=== PATIENT | male | born 1950 | race Caucasian/White ===

== ENCOUNTER 2023-12-31 14:55 | Inpatient (IN) | payer OTHER ==
[~2023-12-31] VITALS: Wt 95.3 kg
[2023-12-31 15:14] LABS: BASO % 0.3 % (0.0-1.0); EOS # 0.2 10*3/uL (0.0-0.4); EOS % 2.5 % (1.0-4.0); HEMATOCRIT 46.8 % (42.0-52.0); LYMPH # 1.7 10*3/uL (1.3-4.4); LYMPH % 24.7 % (27.0-41.0); MEAN CELL VOLUME 95.1 fl (80.0-94.0); MEAN CORPUSCULAR HGB 30.7 pg (27.0-31.0); MEAN CORPUSCULAR HGB CONC 32.3 g/dl (33.0-37.0); MEAN PLATELET VOLUME 10.7 fl (9.6-12.3); MONO # 0.7 10*3/uL (0.1-1.0); MONO % 10.1 % (3.0-9.0); NEUT # 4.2 10*3/uL (2.3-7.9); NEUT % 61.7 % (47.0-73.0); PLATELET COUNT AUTOMATED 148 10*3/uL (130-400); RED BLOOD COUNT 4.92 10*6/uL (4.50-5.90); RED CELL DISTRI WIDTH 12.1 % (0-14.5); WHITE BLOOD COUNT 6.7 10*3/uL (4.8-10.8)
[2023-12-31 15:23] VITALS: BP 96/54
[2023-12-31 15:38] LABS: POTASSIUM 4.4 mmol/L (3.4-5.1); TOTAL PROTEIN 6.9 gm/dL (6.0-8.0)
[2023-12-31 15:38] LABS: BILIRUBIN Negative (Negative); BLOOD 2+ (Negative); CLARITY Clear (Clear); COLOR Yellow (Yellow); GLUCOSE Negative (Negative); KETONE Trace (Negative); LEUKO ESTERASE 1+ (Negative); NITRITE Negative (Negative); UROBILINOGEN 0.2 E.U./dl (0.0-1.0)
[2023-12-31 15:58] LABS: MUCOUS 1+; RBC 21-30 rbc/hpf (0-2)
[2023-12-31] MEDS ORDERED: Fosfomycin Tromethamine 3 GM PDS PO ONE (16:05)
[2023-12-31] MEDS ORDERED: ARICEPT10 M1 PO (16:44)
[2023-12-31] MEDS ORDERED: VITAMIN B-12250 MCG PO (16:45)
[2023-12-31] MEDS ORDERED: CELEXA10 MG PO (16:45)
[2023-12-31] MEDS ORDERED: FINASTERIDE5 M1 PO (16:45)
[2023-12-31] MEDS ORDERED: CLARITIN10 MG PO (16:47)
[2023-12-31] MEDS ORDERED: PROSCAR5 M1 PO (16:49)
[2023-12-31] MEDS ORDERED: FLOMAX0.4 MG PO (16:50)
[2023-12-31] MEDS ORDERED: VITAMIN D31250 MC1 PO (16:51)
[2023-12-31] MEDS ORDERED: ELIQUIS2.5 M1 PO (16:51)
[2023-12-31] MEDS ORDERED: RISPERDAL0.5 MG PO (16:52)
[2023-12-31 18:15] VITALS: BP 117/58
[2023-12-31 20:00] VITALS: BP 134/88
[2023-12-31] MEDS ORDERED: MG-AL HYDROXIDE/SIMETICONE 30 ML UDC PO PRN (20:05)
[2023-12-31] MEDS ORDERED: ACETAMINOPHEN 325 MG TAB PO PRN (20:05)
[2023-12-31] MEDS ORDERED: Magnesium Hydroxide 30 ML UDC PO PRN (20:05)
[2023-12-31] MEDS ORDERED: Menthol/Zinc Oxide 4 GM THIN T PRN (20:15)
[2023-12-31] MEDS ORDERED: DEPAKOTE SPRIN125 MG PO (21:12)
[2023-12-31] MEDS ORDERED: Nizoral 2%15 GM T (21:15)
[2023-12-31] MEDS ORDERED: MIRALAX119 GM PO (21:17)
[2023-12-31] MEDS ORDERED: SENNA8.6 MG PO (21:17)
[2023-12-31] MEDS ORDERED: Ziprasidone Mesylate 20 MG VIAL IM PRN (21:30)
[2023-12-31] MEDS ORDERED: LORazepam 1 MG TAB PO PRN (21:30)
[2023-12-31] MEDS ORDERED: Water, Sterile 10 ML VIAL IM PRN (21:35)
[2024-01-01 07:32] VITALS: BP 111/65
[2024-01-01 08:38] LABS: VITAMIN D, 25-HYDROXY 75.7 ng/mL (30-100)
[2024-01-01] MEDS ORDERED: DIVALPROEX SODIUM 125 MG CAP PO SCH (09:00)
[2024-01-01] MEDS ORDERED: Rivastigmine Tartrate 4.6 MG/24 HR PATCH T SCH (09:00)
[2024-01-01] MEDS ORDERED: RISPERIDONE 1 MG TAB PO SCH (09:00)
[2024-01-01] MEDS ORDERED: LORATADINE 10 MG TAB PO SCH (10:00)
[2024-01-01] MEDS ORDERED: APIXABAN 5 MG TAB PO SCH (10:00)
[2024-01-01] MEDS ORDERED: Tamsulosin Hydrochloride 0.4 MG CAP PO SCH (10:00)
[2024-01-01 20:00] VITALS: BP 124/65
[2024-01-01] MEDS ORDERED: Memantine Hydrochloride 5 MG TAB PO SCH (21:00)
[2024-01-01] MEDS ORDERED: FINASTERIDE 5 MG TAB PO SCH (22:00)
[2024-01-02 08:00] VITALS: BP 113/80
[2024-01-02] MEDS ORDERED: Memantine Hydrochloride 5 MG TAB PO SCH (09:00)
[2024-01-02 20:00] VITALS: BP 138/94
[2024-01-03 07:46] VITALS: BP 128/84
[2024-01-03] MEDS ORDERED: Rivastigmine Tartrate 9.5 MG/24 HR PATCH T SCH (09:00)
[2024-01-03 20:00] VITALS: BP 120/78
[2024-01-04 07:46] VITALS: BP 108/61
[2024-01-04 20:00] VITALS: BP 135/79
[2024-01-04] MEDS ORDERED: diphenhydrAMINE hydrochloride 25 MG CAP PO ONE (20:45)
[2024-01-04] MEDS ORDERED: Memantine Hydrochloride 10 MG TAB PO SCH (21:00)
[2024-01-05 07:44] VITALS: BP 145/84
[2024-01-05 11:59] LABS: BASO % 0.3 % (0.0-1.0); EOS # 0.2 10*3/uL (0.0-0.4); EOS % 2.9 % (1.0-4.0); HEMATOCRIT 49.5 % (42.0-52.0); LYMPH # 1.5 10*3/uL (1.3-4.4); LYMPH % 25.1 % (27.0-41.0); MEAN CELL VOLUME 96.1 fl (80.0-94.0); MEAN CORPUSCULAR HGB 30.7 pg (27.0-31.0); MEAN CORPUSCULAR HGB CONC 31.9 g/dl (33.0-37.0); MEAN PLATELET VOLUME 10.9 fl (9.6-12.3); MONO # 0.6 10*3/uL (0.1-1.0); NEUT # 3.8 10*3/uL (2.3-7.9); PLATELET COUNT AUTOMATED 137 10*3/uL (130-400); RED BLOOD COUNT 5.15 10*6/uL (4.50-5.90); RED CELL DISTRI WIDTH 12.4 % (0-14.5); WHITE BLOOD COUNT 6.1 10*3/uL (4.8-10.8)
[2024-01-05 12:32] LABS: ALKALINE PHOSPHATASE 77 U/L (46-116); BUN 16 mg/dl (9-23); CHLORIDE 109 mmol/L (98-107); POTASSIUM 4.8 mmol/L (3.4-5.1); SGPT/ALT 12 U/L (5-49)
[2024-01-05 16:19] LABS: BILIRUBIN Negative (Negative); BLOOD 3+ (Negative); CLARITY Clear (Clear); COLOR Yellow (Yellow); GLUCOSE Negative (Negative); KETONE 1+ (Negative); LEUKO ESTERASE Negative (Negative); NITRITE Negative (Negative); PH 5.5 (4.5-8.0)
[2024-01-05 17:19] LABS: RBC 41-50 rbc/hpf (0-2)
[2024-01-05 20:00] VITALS: BP 125/88
[2024-01-06 07:43] VITALS: BP 119/91
[2024-01-06] MEDS ORDERED: RIVASTIGMINE 13.3 MG/24 HR TDM T SCH (09:00)
[2024-01-06 20:00] VITALS: BP 140/93
[2024-01-07 07:57] VITALS: BP 130/69
[2024-01-07] MEDS ORDERED: BENZTROPINE MESYLATE 2 MG/2 ML AMP IM ONE (09:05)
[2024-01-07 20:00] VITALS: BP 120/70
[2024-01-07] MEDS ORDERED: BENZTROPINE MESYLATE 1 MG TAB PO SCH (21:00)
[2024-01-08 08:00] VITALS: BP 135/62
[2024-01-08 20:00] VITALS: BP 140/81
[2024-01-09 07:37] VITALS: BP 114/64
[2024-01-09 20:00] VITALS: BP 102/66
[2024-01-10 08:15] VITALS: BP 101/71
[2024-01-10 19:51] VITALS: BP 111/75
[2024-01-11 09:02] VITALS: BP 96/57
[2024-01-11 20:00] VITALS: BP 123/74
[2024-01-11] MEDS ORDERED: Trihexyphenidyl Hydrochlorid 2 MG TAB PO SCH (21:00)
[2024-01-12 07:43] VITALS: BP 98/54
[2024-01-12] MEDS ORDERED: EXELON1 EAC2 TD (11:19)
[2024-01-12] MEDS ORDERED: TRIHEXYPHENIDYL2 M3 PO (11:19)
== END 2024-01-12 11:35 | DRG 883 ==
LOC: ED 14:55 → 3N 17:31
PROVIDERS: Internal Medicine; Student in an Organized Health Care Education/Training Program; ADMIT Psychiatry & Neurology Psychiatry; ATTEND Psychiatry & Neurology Psychiatry
PROC: GZHZZZZ Group Psychotherapy (ICD-10-PCS; principal; 2024-01-01)
PROC: GZ51ZZZ Individual Psychotherapy, Behavioral (ICD-10-PCS; 2024-01-01)
DX: F63.81 Intermittent explosive disorder (principal); N18.32 Chronic kidney disease, stage 3b; N30.00 Acute cystitis without hematuria; I13.0 Hypertensive heart and chronic kidney disease with heart failure and stage 1 through stage 4 chronic kidney disease, or unspecified chronic kidney disease; Z66 Do not resuscitate; F41.9 Anxiety disorder, unspecified; N40.0 Benign prostatic hyperplasia without lower urinary tract symptoms; M15.9 Polyosteoarthritis, unspecified; E78.2 Mixed hyperlipidemia; I50.9 Heart failure, unspecified; F03.90 Unspecified dementia, unspecified severity, without behavioral disturbance, psychotic disturbance, mood disturbance, and anxiety; Z96.642 Presence of left artificial hip joint; Z88.0 Allergy status to penicillin; Z88.5 Allergy status to narcotic agent; Z86.718 Personal history of other venous thrombosis and embolism; Z79.899 Other long term (current) drug therapy